=== PATIENT | female | born 1960 | race Caucasian/White ===

== ENCOUNTER 2022-03-04 07:06 | Day surgery (SDC) | payer OTHER, SELFPAY ==
[2022-03-04 07:30] VITALS: BP 130/86; PULSE 76; RESP 16; TEMP 36.7; O2SAT 96
[2022-03-04] MEDS: LACTATED RINGERS 1000 ML 1,000 ML 100 ML IV (07:45)
[2022-03-04 07:57] VITALS: BMI 36.1
[2022-03-04] MEDS: CEFAZOLIN 1 GM inj IVP (09:52)
--- NOTE | 2022-03-04 10:09 | CRLHL7_ITS ---
For Patients: As a result of the Cures Act, medical imaging exams and procedure reports are released immediately into your electronic medical record. You may view this report before your referring provider. If you have questions, please contact your health care provider. Indication: INTRAOP HAMMER TOE EXAM Technique: Single fluoroscopic image of the left foot. Fluoroscopic time 9.7 seconds. IMPRESSION: Fluoroscopic guidance for hammertoe correction involving the 2nd, 3rd and 4th toes. Dictated by Benjamin Mulligan MD @ 03/05/2022 9:02:18 AM (Electronically Signed)
--- NOTE | 2022-03-04 10:09 | CRLHL7_ITS ---
For Patients: As a result of the Cures Act, medical imaging exams and procedure reports are released immediately into your electronic medical record. You may view this report before your referring provider. If you have questions, please contact your health care provider. Indication: INTRA OP HAMMER TOE EXAM Technique: One fluoroscopic image of the right foot. Fluoroscopic time 9.7 seconds. IMPRESSION: Fluoroscopic guidance for hammertoe correction procedure involving the 2nd, 3rd and 4th toes. Dictated by Benjamin Mulligan MD @ 03/05/2022 9:04:23 AM (Electronically Signed)
--- NOTE | 2022-03-04 10:52 | SUR.OPER ---
TIME OUT PERFORMED PRIOR TO INJECTION OF THE LOCAL IN THE BILATERAL FEET AT 09:48. PATIENT QUESTIONS ANSWERED SATISFACTORILY PREOPERATIVELY.? PATIENT BROUGHT TO OR #4 PER CART.? Patient positioned supine on OR #4 bed. Perioperative team supported arms bilaterally on arm boards.? Final approval of positioning by surgeon.?
--- NOTE | 2022-03-04 11:43 | SUR.OPER ---
NS POUR IRRIGATED RIGHT FOOT AT 10:40, LEFT FOOT AT 11:38.
[2022-03-04 11:51] VITALS: BP 114/89; PULSE 72; RESP 16; TEMP 36.4; O2SAT 99
--- NOTE | 2022-03-04 11:54 | W.ANESCHARGE ---
Anesthesia Charges Start Date/Time Anesthesia Start Date: 03/04/22 Anesthesia Start Time: 09:40 Stop Date/Time Anesthesia Stop Date: 03/04/22 Anesthesia Stop Time: 11:55 Summary Emergency: Yes
[2022-03-04 12:00] VITALS: BP 127/97; PULSE 74; RESP 16; O2SAT 98
--- NOTE | 2022-03-04 12:02 | PM.ONB ---
Brief Operative Note Date of procedure: 03/04/22 Pre-op diagnosis: Hammertoes 2, 3, and 4 bilateral Post-op diagnosis: same Implants: 0.045 smooth k-wires x6 Anesthesia: MAC Surgeon: Bryan Maxwell Estimated blood loss (mL): 2 Condition: stable Disposition: same day
[2022-03-04 12:15] VITALS: BP 131/91; PULSE 62; RESP 16; O2SAT 96
[2022-03-04 12:30] VITALS: BP 140/91; PULSE 60; RESP 16; O2SAT 96
[2022-03-04 12:45] VITALS: BP 140/91; PULSE 59; RESP 16; O2SAT 96
--- NOTE | 2022-03-04 22:35 | P.PCN_ITS ---
Procedure Note Date of procedure: 03/04/22 Will [facility] bill your pro fee for this procedure?: No Pre-op diagnosis: Hammertoes digits 2, 3 and 4 bilateral Post-op diagnosis: same Procedure: 1. Hammertoe repair 2nd digit right 2. Hammertoe repair 2nd digit left 3. Hammertoe repair 3rd digit right 4. Hammertoe repair 3rd digit left 5. Hammertoe repair 4th digit right 6. Hammertoe repair 4th digit left 7. Z lengthening extensor tendon 2nd toe right 8. Z lengthening extensor tendon 2nd toe left 9. Z lengthening extensor tendon 3rd toe right 10. Z lengthening extensor tendon 3rd toe left 11. Z lengthening extensor tendon 4th toe right 12. Z lengthening extensor tendon 4th toe left Procedure Description: Risks and benefits of surgery were reviewed with Veronica and written consent obt ained. Surgical site marked. She was brought into the OR and placed in supine position on the table. Anesthesia administered IV sedation and local anesthetic was then injected into both feet. The patient was prepped and draped in sterile fashion. Standard time out protocol followed. The right leg was exsanguinated and tourniquet inflated to 250mmHg. Linear incision was made over the EDL tendon at the metatarsal neck 2nd right. Incision depended down to the extensor tendon. the EDB tendon released. Z lengthening performed on the EDL tendon. Toe position improved. Area irrigated with normal saline. After lengthening the tendon slips sutured together with 4-0 Vicryl. Skin closed with 4-0 Prolene. Linear incision was made over the EDL tendon at the metatarsal neck 3rd right. Incision depended down to the extensor tendon. the EDB tendon released. Z lengthening performed on the EDL tendon. Toe position improved. Area irrigated with normal saline. After lengthening the tendon slips sutured together with 4-0 Vicryl. Skin closed with 4-0 Prolene. Linear incision was made over the EDL tendon at the metatarsal neck 4th right. Incision depended down to the extensor tendon. the EDB tendon released. Z lengthening performed on the EDL tendon. Toe position improved. Area irrigated with normal saline. After lengthening the tendon slips sutured together with 4-0 Vicryl. Skin closed with 4-0 Prolene. Transverse semi-elliptical incision made over the PIPJ of the 2nd toe right foot. skin wedge excised. Transverse incision made through the extensor tendon and joint capsule at PIPJ. Medial and lateral collateral ligaments released. Sagittal saw used to remove the head of the proximal phalanx and base of the middle phalanx. Area irrigated with normal saline. Fusion site fixated with 0.045 smooth k-wire. C-arm confirmed position. k-wire bent, cut and capped. Redundant extensor tendon removed and repaired with 4-0 Vicryl. skin closed with 4-0 prolene. Transverse semi-elliptical incision made over the PIPJ of the 3rd toe right foot. skin wedge excised. Transverse incision made through the extensor tendon and joint capsule at PIPJ. Medial and lateral collateral ligaments released. Sagittal saw used to remove the head of the proximal phalanx and base of the middle phalanx. Area irrigated with normal saline. Fusion site fixated with 0.045 smooth k-wire. C-arm confirmed position. k-wire bent, cut and capped. Redundant extensor tendon removed and repaired with 4-0 Vicryl. skin closed with 4-0 prolene. Transverse semi-elliptical incision made over the PIPJ of the 4th toe right foot. skin wedge excised. Transverse incision made through the extensor tendon and joint capsule at PIPJ. Medial and lateral collateral ligaments released. Sagittal saw used to remove the head of the proximal phalanx and base of the middle phalanx. Area irrigated with normal saline. Fusion site fixated with 0.045 smooth k-wire. C-arm confirmed position. k-wire bent, cut and capped. Redundant extensor tendon removed and repaired with 4-0 Vicryl. skin closed with 4-0 prolene. Linear incision was made over the EDL tendon at the metatarsal neck 2nd left. Incision depended down to the extensor tendon. the EDB tendon released. Z lengthening performed on the EDL tendon. Toe position improved. Area irrigated with normal saline. After lengthening the tendon slips sutured together with 4-0 Vicryl. Skin closed with 4-0 Prolene. Linear incision was made over the EDL tendon at the metatarsal neck 3rd left. Incision depended down to the extensor tendon. the EDB tendon released. Z lengthening performed on the EDL tendon. Toe position improved. Area irrigated with normal saline. After lengthening the tendon slips sutured together with 4-0 Vicryl. Skin closed with 4-0 Prolene. Linear incision was made over the EDL tendon at the metatarsal neck 4th left. Incision depended down to the extensor tendon. the EDB tendon released. Z lengthening performed on the EDL tendon. Toe position improved. Area irrigated with normal saline. After lengthening the tendon slips sutured together with 4-0 Vicryl. Skin closed with 4-0 Prolene. Transverse semi-elliptical incision made over the PIPJ of the 2nd toe left foot. skin wedge excised. Transverse incision made through the extensor tendon and joint capsule at PIPJ. Medial and lateral collateral ligaments released. Sagittal saw used to remove the head of the proximal phalanx and base of the middle phalanx. Area irrigated with normal saline. Fusion site fixated with 0.045 smooth k-wire. C-arm confirmed position. k-wire bent, cut and capped. Redundant extensor tendon removed and repaired with 4-0 Vicryl. skin closed with 4-0 prolene. Transverse semi-elliptical incision made over the PIPJ of the 3rd toe right foot. skin wedge excised. Transverse incision made through the extensor tendon and joint capsule at PIPJ. Medial and lateral collateral ligaments released. Sagittal saw used to remove the head of the proximal phalanx and base of the middle phalanx. Area irrigated with normal saline. Fusion site fixated with 0.045 smooth k-wire. C-arm confirmed position. k-wire bent, cut and capped. Redundant extensor tendon removed and repaired with 4-0 Vicryl. skin closed with 4-0 prolene. Transverse semi-elliptical incision made over the PIPJ of the 4th toe left foot. skin wedge excised. Transverse incision made through the extensor tendon and joint capsule at PIPJ. Medial and lateral collateral ligaments released. Sagittal saw used to remove the head of the proximal phalanx and base of the middle phalanx. Area irrigated with normal saline. Fusion site fixated with 0.045 smooth k-wire. C-arm confirmed position. k-wire bent, cut and capped. Redundant extensor tendon removed and repaired with 4-0 Vicryl. skin closed with 4-0 prolene. Tourniquets released and normal CFT returned to all digits. all toes in better alignment. Sterile dressing applied. She was taken from OR to recovery with VSS. Discharge per anesthesia. sugical shoes given. oxycodone for pain. f/u in 2 days. Bryan Maxwell DPM FACFAS Anesthesia: MAC Surgeon: Bryan Maxwell DPM Estimated blood loss (mL): 2 Condition: stable Disposition: same day
== END 2022-03-04 13:10 | disposition home or self-care (01) ==
LOC: OR 07:08
PROVIDERS: Visit Provider Podiatrist
PROC: (CPT 28285; principal; 2022-03-04 08:30)
DX: M20.42 Other hammer toe(s) (acquired), left foot (principal); M20.41 Other hammer toe(s) (acquired), right foot
CPT/HCPCS: 28285 ×6; 01462; 73620; 76000; 87635; 99140; J0690; J2250; J2405; J2704; J3010; J7120